=== PATIENT | female | born 1955 | race Caucasian/White ===

== ENCOUNTER 2020-07-27 00:57 | Emergency (ER) | payer MEDICAID ==
--- NOTE | 2020-07-27 01:24 | ER Document Report ---
ED General - General Chief Complaint: Unresponsive Stated Complaint: UNRESPONSIVE Time Seen by Provider: 07/27/20 01:18 Primary Care Provider: MATEO ANDERSEN MD [Primary Care Provider] - Follow up as needed TRAVEL OUTSIDE OF THE [place] IN LAST 30 DAYS: No - HPI Notes: 64-year-old female arrives via EMS after cardiopulmonary arrest at home. EMS states that the initial call was for respiratory distress, sudden onset which occurred after a shower. Upon arrival into her home "she coded right in front of us". Initial rhythm was PEA then asystole. She received 5 rounds of epi, 1 amp of bicarb and 1 dose of Narcan. ROSC was obtained with a reported sinus tachycardia which then changed to a second-degree heart block. She was intubated using ketamine and rocuronium. She was started on Levophed, arrives at 8 mcg/min on arrival. Also started pacing her with heart rate to 75. Total code time with EMS 26 minutes. Patient reportedly has a history of metastatic breast cancer. Rapid Covid test is negative. - Related Data Allergies/Adverse Reactions: gabapentin [Gabapentin] Allergy (Verified 10/04/14 10:56) ACHES ketorolac tromethamine [From Toradol] Allergy (Verified 10/04/14 10:58) UNSURE lisinopril [Lisinopril] Allergy (Verified 10/04/14 10:56) OUT OF BODY EXPERIENCE Penicillins Allergy (Verified 10/04/14 10:56) Hives prednisone [Prednisone] Allergy (Verified 10/04/14 10:58) OUT OF BODY EXPERIENCE egg [Egg] Adverse Reaction (Verified 10/04/14 10:56) Hives Past Medical History - General Information source: Emergency Med Personnel Cannot obtain history due to: Intubated - Social History Smoking Status: Unknown if Ever Smoked Family History: Other - Unable to obtain - Past Medical History Cardiac Medical History: Reports: Hx Hypertension Denies: Hx Coronary Artery Disease, Hx Heart Attack Pulmonary Medical History: Reports: Hx COPD Denies: Hx Asthma, Hx Bronchitis, Hx Pneumonia Neurological Medical History: Denies: Hx Cerebrovascular Accident, Hx Seizures GI Medical History: Reports: Hx Gastroesophageal Reflux Disease Musculoskeletal Medical History: Reports Hx Arthritis - fingers - Immunizations Hx Diphtheria, Pertussis, Tetanus Vaccination: No - UNSURE Review of Systems - Review of Systems -: Yes ROS unobtainable due to patient's medical condition Physical Exam - General General appearance: Unresponsive - HEENT Head: Normocephalic, Atraumatic Pupils: Dilated, Fixed - Respiratory Notes: Intubated, breath sounds present bilaterally with bagging - Cardiovascular Notes: No palpable pulse, no activity on child monitor - Abdominal Inspection: Obese - Extremities General lower extremity: No: Edema - Neurological [place] Coma Scale Eye Opening: None [place] Coma Scale Verbal: None [place] Coma Scale Motor: None [place] Coma Scale Total: 3 - Psychological Associated symptoms: Other - Unable to assess - Skin Skin Temperature: Cold Skin Color: Pale Course - Re-evaluation Re-evalutation: 64-year-old female with reported history of metastatic breast cancer arrives after EMS witnessed a cardiopulmonary arrest at home. She underwent approximately 26 minutes of CPR with 5 epi and 1 bicarb prior to arrival, rep orted rhythms were PEA then asystole. ROSC obtained with reported sinus tach and then a second degree block. On arrival to the emergency department patient did not have a palpable pulse, her extremities were pale and cold. Cardiopulmonary resuscitation was immediately started using ACLS algorithm. Patient was persistently in asystole. She received 3 rounds of epinephrine, 1 amp of bicarb, 1 of a calcium gluconate. On the final pulse check, patient continued to be in asystole. No heart sounds were auscultated, no palpable pulses, no breath sounds auscultated. A bedside ultrasound was performed which showed no cardiac activity. Pupils remained fixed and dilated. Time of was called at 0108. appeals examiner to be notified. No family currently present, will make attempts to locate in contact. 07/27/20 01:42 Patient's daughter, Dinora Chisholm, was updated - Laboratory Results Critical Laboratory Results Reviewed: No Critical Results - Radiology Results Critical Radiology Results Reviewed: No Critical Results Discharge - Discharge Clinical Impression: Cardiopulmonary arrest Disposition: Referrals: MATEO ANDERSEN MD [Primary Care Provider] - Follow up as needed
[2020-07-27] MEDS ORDERED: CALCIUM GLUCONATE 1000 MG/10 ML INJ IV ONE (05:00)
[2020-07-27] MEDS ORDERED: EPINEPHRINE INJ 1 MG/10 ML DISP.SYRIN ONE (05:00)
[2020-07-27] MEDS ORDERED: SODIUM BICARBONATE 8.4% INJ 50 MEQ/50 ML DISP.SYRIN ONE (05:00)
== END 2020-07-27 03:58 | disposition expired ==
LOC: ER 00:57
DX: I46.9 Cardiac arrest, cause unspecified (principal); I44.1 Atrioventricular block, second degree; R00.0 Tachycardia, unspecified; Z20.828 Contact with and (suspected) exposure to other viral communicable diseases; Z88.8 Allergy status to other drugs, medicaments and biological substances; I10 Essential (primary) hypertension; J44.9 Chronic obstructive pulmonary disease, unspecified
CPT/HCPCS: 99285; 92950; J0610; J0171; J3490